=== PATIENT | female | born 2005 | race Caucasian/White ===

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

== ENCOUNTER 2025-01-31 10:30 | Outpatient (RCR) | payer OTHER, SELFPAY ==
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
== END 2025-01-31 19:00 | disposition home or self-care (01) ==
LOC: PT 10:30
PROVIDERS: Referring Provider Family Medicine; Visit Provider Family Medicine
DX: R07.89 Other chest pain (principal); M54.50 Low back pain, unspecified
CPT/HCPCS: 97110; 97140; 97161; 97530